=== PATIENT | female | born 1955 ===

== ENCOUNTER 2019-04-21 13:21 | Inpatient (IN) | payer OTHER ==
[~2019-04-21] VITALS: Ht 160 cm; Wt 60.3 kg
[2019-04-21] MEDS ORDERED: PROGESTERON PO (13:36)
[2019-04-21] MEDS ORDERED: SPIRONOLACTONE PO (13:37)
[2019-04-21] MEDS ORDERED: CLONAZEPAM0.5 MG (13:37)
[2019-04-21] MEDS ORDERED: OMEPRAZOLE20 MG PO (13:38)
[2019-04-26] MEDS ORDERED: PROGESTERONE200 MG PO (08:04)
[2019-04-26] MEDS ORDERED: SPIRONOLACTONE50 MG PO (08:04)
== END 2019-04-29 17:16 | disposition home or self-care (01) | DRG 331 ==
LOC: O/R 14:45 → SURH 04-26 07:15 → O/R 04-26 07:15 → SURH 04-26 09:00 → EDBD 04-26 14:45 → SURH 04-26 14:45
PROVIDERS: ADMIT Colon & Rectal Surgery
PROC: 0DJD8ZZ Inspection of Lower Intestinal Tract, Via Natural or Artificial Opening Endoscopic (ICD-10-PCS; 2019-04-26)
PROC: 0DTN4ZZ Resection of Sigmoid Colon, Percutaneous Endoscopic Approach (ICD-10-PCS; principal; 2019-04-26 09:00)
DX: K57.20 Diverticulitis of large intestine with perforation and abscess without bleeding (principal); F41.8 Other specified anxiety disorders

== ENCOUNTER 2020-05-04 08:55 | Day surgery (SDC) | payer OTHER ==
[~2020-05-04 08:55] MED LIST: CLONAZEPAM0.5 MG; OMEPRAZOLE20 MG PO; PROGESTERON PO; PROGESTERONE200 MG PO; SPIRONOLACTONE PO; SPIRONOLACTONE50 MG PO
== END 2020-05-04 15:30 | disposition home or self-care (01) ==
LOC: AMB-ENDOS 08:55
PROVIDERS: ATTEND Colon & Rectal Surgery
DX: K62.89 Other specified diseases of anus and rectum (principal); K64.2 Third degree hemorrhoids